=== PATIENT | male | born 1990 | race Caucasian/White ===

== ENCOUNTER 2017-04-07 22:41 | Emergency (ER) | payer SELFPAY ==
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
[2017-04-07] MEDS ORDERED: KETOROLAC TROMETHAMINE 60 MG/2 ML VIAL IM ONE ×2 (23:21→23:32)
[2017-04-08] MEDS ORDERED: CYCLOBENZAPRINE HCL 10 MG TABLET PO ONE (00:11)
[2017-04-08] MEDS ORDERED: CYCLOBENZAPRINE HCL 10 MG TABLET ONE (00:35)
[2017-04-08 00:39] VITALS: BP 126/74
== END 2017-04-08 00:39 | disposition home or self-care (01) ==
LOC: ER 22:41
DX: X58.XXXA Exposure to other specified factors, initial encounter; F17.200 Nicotine dependence, unspecified, uncomplicated; R51 Headache; Y92.9 Unspecified place or not applicable; Y93.9 Activity, unspecified